=== PATIENT | male | born 1995 | race African-American/Black ===

== ENCOUNTER 2019-03-30 19:05 | Emergency (ER) | payer SELFPAY ==
--- NOTE | 2019-03-30 19:48 | ED ---
Influenza-Like Illness - History of Current Complaint Chief Complaint: EDUpperRespComplaint - Allergy/Home Medications Allergies/Adverse Reactions: Allergies Allergy/AdvReac Type Severity Reaction Status Date / Time No Known Allergies Allergy Verified 03/30/19 19:26 PMH/Surg Hx/FS Hx/Imm Hx Infectious Disease History: No Infectious Disease History: Denies: Traveled Outside the [place] in Last 30 Days Physical Exam Vital Signs On Initial Exam: Initial Vitals Temp Pulse Resp BP Pulse Ox 98.5 F 74 16 142/82 98 03/30/19 19:20 03/30/19 19:20 03/30/19 19:20 03/30/19 19:20 03/30/19 19:20 Diagnostics - Vital Signs Vital Signs Temp Pulse Resp BP Pulse Ox 03/30/19 19:20 98.5 F 74 16 142/82 98 - Laboratory Lab Statement: Any lab studies that have been ordered have been reviewed, and results considered in the medical decision making process. Discharge - Discharge Plan Referrals: No Primary Care Phys,NOPCP [Primary Care Provider] -
--- NOTE | 2019-03-30 20:06 | ED ---
Influenza-Like Illness - HPI Summary HPI Summary: 23 yo male presents to [facility] ED with complaints of sinus pain/pressure/congestion and intermittently productive cough for the last 2 weeks getting worse over the last 2-3 days. He has not been taking anything OTC for his symptoms. He smokes daily. Denies fever, chills, sore throat, SOB, rash, n/v. - History of Current Complaint Chief Complaint: EDUpperRespComplaint Time Seen by Provider: 03/30/19 20:06 Hx Obtained From: Patient Onset/Duration: Gradual Onset - Allergy/Home Medications Allergies/Adverse Reactions: Allergies Allergy/AdvReac Type Severity Reaction Status Date / Time No Known Allergies Allergy Verified 03/30/19 19:26 PMH/Surg Hx/FS Hx/Imm Hx Endocrine/Hematology History: Denies: Hx Blood Disorders, Hx Diabetes Cardiovascular History: Denies: Hx Atrial Fibrillation, Hx Coronary Artery Disease Respiratory History: Denies: Hx Asthma, Hx Pneumonia - Surgical History Surgical History: None - Immunization History Immunizations Up to Date: Yes Infectious Disease History: No Infectious Disease History: Denies: Traveled Outside the [place] in Last 30 Days - Family History Known Family History: Positive: Non-Contributory - Social History Lives: With Family Alcohol Use: Daily Alcohol Amount: 2 beers/day Substance Use Type: Reports: Marijuana Substance Use Comment - Amount & Last Used: occasional Smoking Status (MU): Heavy Every Day Tobacco Smoker Review of Systems Constitutional: Negative Eyes: Negative Positive: Nasal Discharge, Other - Sinus pressure Cardiovascular: Negative Positive: Cough Gastrointestinal: Negative Genitourinary: Negative Skin: Negative Neurological: Negative Psychological: Normal All Other Systems Reviewed And Are Negative: Yes Physical Exam - Summary Physical Exam Summary: GENERAL: NAD. WDWN. No pain distress. SKIN: No rashes, sores, lesions, or open wounds. HEENT: Head: AT/NC Eyes: EOM intact. Conjunctiva clear without inflammation or discharge. Ears: Hearing grossly normal. TMs intact, no bulging, erythema, or edema. Nose: Nasal mucosa mildly swollen and erythematous without discharge. TTP maxillary sinus. Positive post nasal drip Throat: Posterior oropharynx without exudates, erythema, or tonsillar enlargement. Uvula midline. NECK: Supple. Nontender. No lymphadenopathy. CHEST: CTAB. No r/r/w. No accessory muscle use. Breathing comfortably and in no distress. CV: RRR. Without m/r/g. Pulses intact. NEURO: Alert. PSYCH: Age appropriate behavior. Triage Information Reviewed: Yes Vital Signs On Initial Exam: Initial Vitals Temp Pulse Resp BP Pulse Ox 98.5 F 74 16 142/82 98 03/30/19 19:20 03/30/19 19:20 03/30/19 19:20 03/30/19 19:20 03/30/19 19:20 Vital Signs Reviewed: Yes Diagnostics - Vital Signs Vital Signs Temp Pulse Resp BP Pulse Ox 03/30/19 19:20 98.5 F 74 16 142/82 98 - Laboratory Lab Statement: Any lab studies that have been ordered have been reviewed, and results considered in the medical decision making process. Flu Symptom Course/Dx - Course Course Of Treatment: Given his continued and progressing symptoms will treat with anbx at this time. Advised to take tylenol/ibuprofen as directed for discomfort and try mucinex OTC for symptoms. - Diagnoses Provider Diagnoses: Sinusitis, Bronchitis Discharge - Sign-Out/Discharge Documenting (check all that apply): Patient Departure Patient Received Moderate/Deep Sedation with Procedure: No - Discharge Plan Condition: Stable Disposition: HOME Prescriptions: Amoxicillin/Clavulanate TAB* [Augmentin TAB 875*] 875 mg PO BID #14 tab Patient Education Materials: Sinusitis (ED), Acute Bronchitis (ED) Referrals: No Primary Care Phys,NOPCP [Primary Care Provider] - Additional Instructions: If you develop a fever, shortness of breath, chest pain, new or worsening symptoms - please call your PCP or go to the ED immediately. Your blood pressure was slightly elevated at todays visit. Please see your primary provider within 4 weeks for recheck and re-evaluation. - Billing Disposition and Condition Condition: STABLE Disposition: Home
[2019-03-30] MEDS ORDERED: Amoxicillin/Clavulanate TAB* 875 MG PO ONE (20:15)
[2019-03-30 20:32] VITALS: BP 142/64
== END 2019-03-30 20:31 | disposition home or self-care (01) ==
LOC: ED 19:05
DX: J32.9 Chronic sinusitis, unspecified (principal); J40 Bronchitis, not specified as acute or chronic; F17.210 Nicotine dependence, cigarettes, uncomplicated
CPT/HCPCS: 99282; A9270-GY